=== PATIENT | female | born 1995 | race Caucasian/White ===

== ENCOUNTER 2018-10-24 17:04 | Emergency (ER) | payer MEDICAID ==
[~2018-10-24] VITALS: Ht 154.9 cm; Wt 60.0 kg
[2018-10-24] MEDS ORDERED: KETOROLAC 30MG/ML VIAL IM ONE (18:15)
[2018-10-24] MEDS ORDERED: SODIUM CHLORIDE 0.9% 1,000 ML IV ONE (18:30)
[2018-10-24] MEDS ORDERED: METOCLOPRAMIDE HCL 10MG/2ML VIAL IV ONE (18:30)
[2018-10-24 20:26] VITALS: BP 109/73
== END 2018-10-24 20:29 | disposition home or self-care (01) ==
LOC: ER 17:04
DX: R51 Headache (principal); M25.531 Pain in right wrist; M79.641 Pain in right hand
CPT/HCPCS: 73110; 73130; 81025; 96372; 96374; 99283; J1885; J2765; J7030